=== PATIENT | female | born 1975 | race Two or more races ===

== ENCOUNTER 2019-11-16 06:27 | Day surgery (SDC) | payer OTHER | END 2019-11-16 16:20 | disposition home or self-care (01) | LOC: CIR.AMB 06:27 | PROVIDERS: ATTEND Obstetrics & Gynecology | DX: N84.0 Polyp of corpus uteri (principal); Z20.828 Contact with and (suspected) exposure to other viral communicable diseases; Z30.2 Encounter for sterilization ==